=== PATIENT | male | born 1970 | race Caucasian/White ===

== ENCOUNTER 2018-08-02 21:56 | Emergency (ER) | payer SELFPAY ==
[~2018-08-02] VITALS: Ht 172.7 cm; Wt 93.5 kg
[2018-08-02 22:00] VITALS: Ht 172.7 cm; Wt 93.5 kg
[2018-08-03] MEDS ORDERED: CIPROFLOXACIN 250 MG TAB PO ONE (01:30)
[2018-08-03] MEDS ORDERED: DIPHTH/TET/ACEL PERTUSS (ADULT) 0.5 ML VIAL IM* ONE (01:30)
[2018-08-03] MEDS ORDERED: CIPR750T3 PO (03:12)
[2018-08-03 03:44] VITALS: BP 132/67; PULSE 78; RESP 18
--- NOTE | 2018-08-03 03:53 | ERD ---
ER Documentation Chief Complaint Chief Complaint nail puncture on L foot hx of diabetes; no bleeding noted HPI This is a 47-year-old male history of diabetes presents to the ED status post nail puncture wound to his left plantar foot sustained just prior to arrival. Patient states he was wearing sneakers when he accidentally stepped on a a 3 inch goyo nail. Patient immediately changed his shoes and washed his feet with alcohol and peroxide. He then came here for further evaluation. Patient denies any numbness, tingling, focal weakness. Denies any fevers or chills. No other complaints. ROS All systems reviewed and are negative except as per history of present illness. Medications Home Meds Active Scripts Ciprofloxacin Hcl* (Ciprofloxacin Hcl*) 750 Mg Tablet, 750 MG PO BID, #14 TAB Prov:JENARO ENNIS PA-C 08/03/18 PMhx/Soc Medical and Surgical Hx: pt denies Surgical Hx Hx Alcohol Use: No Hx Substance Use: No Hx Tobacco Use: No Physical Exam Vitals Vital Signs Date Temp Pulse Resp B/P (MAP) Pulse Ox O2 O2 Flow FiO2 Time Delivery Rate 08/03/18 98.3 78 18 132/67 100 03:44 (88) 08/02/18 97.5 98 20 142/88 100 22:00 (106) Physical Exam Const: No acute distress Head: Atraumatic Eyes: Normal Conjunctiva ENT: Normal External Ears, Nose and Mouth. Neck: Full range of motion. No meningismus. Resp: Clear to auscultation bilaterally Cardio: Regular rate and rhythm, no murmurs Skin: No petechiae or rashes Back: No midline or flank tenderness Ext: + Small puncture wound to his left plantar foot. No active bleeding. No drainage. No surrounding erythema. DP, PT pulses 2+. Refill less than 2 seconds. Negative Homans sign. Sensation and motor grossly intact. Neur: Awake and alert Psych: Normal Mood and Affect Results 24 hrs Current Medications Medications Dose Sig/Allyson Start Time Status Last (Trade) Ordered Route PRN Stop Time Admin Dose Reason Admin Diphtheria/ 0.5 ml ONCE ONCE 08/03/18 DC 08/03/18 Tetanus/Acell IM* 01:30 01:54 Pertussis 08/03/18 01:31 (Adacel) 750 mg ONCE ONCE 08/03/18 DC 08/03/18 Ciprofloxacin PO 01:30 01:54 (Cipro) 08/03/18 01:31 Procedures/MDM LABS & DIAGNOSTIC IMAGING: PROCEDURE: X-ray left foot. CLINICAL INDICATION: The patient stepped on a nail. TECHNIQUE: AP, lateral and oblique views of the left foot. COMPARISON: None. FINDINGS: No evident retained radiopaque foreign material or subcutaneous emphysema is seen in the left foot. No evident retained radiopaque foreign material seen in the left foot. There is no evident acute fracture or dislocation. Prominent plantar and posterior dorsal calcaneal enthesophytes, greater at the posterior dorsal calcaneus. Vascular calcifications are seen in the left foot. The soft tissues are otherwise unremarkable. IMPRESSION: No evident retained radiopaque foreign material in the left foot. PROCEDURES: Wound was extensively irrigated by emerging technologies director at bedside. ED COURSE: The patient was given tetanus and first dose of Cipro here. The medication was well tolerated and the patient had market improvement in symptoms. The patient remained stable throughout ED course. MEDICAL DECISION MAKING: This is a 47-year-old diabetic male presents to the ED status post puncture wound by a nail just prior to arrival. X-ray as above shows no evidence of sandra ined foreign body. His wound was extensively irrigated. Tetanus is updated and first course of Cipro was given. Given history of diabetes, will treat with outpatient oral antibiotics. Discussed risk of deeper infection into the tissue, bone and skin. At this time, patient has no evidence of tenosynovitis, osteomyelitis, necrotizing fasciitis, abscess or cellulitis. Recommended follow-up with his primary care provider in 2 days. Strict return precautions discussed. PRESCRIPTIONS: Ciprofloxacin SPECIALIST FOLLOW UP RECOMMENDED: None Patient has been advised to follow up with primary care in 1-2 days. Blood Pressure Assessment: Patient's blood pressure was elevated (>120/80) but appears stable without evidence of hypertension emergency or urgency. The patient was counseled about the risks of hypertension and urged to pursue outpatient monitoring and therapy within a week with their primary care physician. Departure Diagnosis: Primary Impression: Puncture wound Additional Impression: Diabetes Diabetes mellitus type: type 2 Condition: Stable Patient Instructions: Puncture Wound, Foot Referrals: COMMUNITY CLINICS YOU HAVE RECEIVED A MEDICAL SCREENING EXAM AND THE RESULTS INDICATE THAT YOU DO NOT HAVE A CONDITION THAT REQUIRES URGENT TREATMENT IN THE EMERGENCY DEPARTMENT. FURTHER EVALUATION AND TREATMENT OF YOUR CONDITION CAN WAIT UNTIL YOU ARE SEEN IN YOUR DOCTORS OFFICE WITHIN THE NEXT 1-2 DAYS. IT IS YOUR RESPONSIBILITY TO MAKE AN APPOINTMENT FOR FOLOW-UP CARE. IF YOU HAVE A PRIMARY DOCTOR --you should call your primary doctor and schedule an appointment IF YOU DO NOT HAVE A PRIMARY DOCTOR YOU CAN CALL OUR PHYSICIAN REFERRAL HOTLINE AT IF YOU CAN NOT AFFORD TO SEE A PHYSICIAN YOU CAN CHOSE FROM THE FOLLOWING [facility] [address] [facility] [address] [facility] [address] [facility] [address] [facility] [address] [facility]. [facility] [address] [facility]. [facility] YOU HAVE RECEIVED A MEDICAL SCREENING EXAM AND THE RESULTS INDICATE THAT YOU DO NOT HAVE A CONDITION THAT REQUIRES URGENT TREATMENT IN THE EMERGENCY DEPARTMENT. FURTHER EVALUATION AND TREATMENT OF YOUR CONDITION CAN WAIT UNTIL YOU ARE SEEN IN YOUR DOCTORS OFFICE WITHIN THE NEXT 1-2 DAYS. IT IS YOUR RESPONSIBILITY TO MAKE AN APPOINTMENT FOR FOLOW-UP CARE. IF YOU HAVE A PRIMARY DOCTOR --you should call your primary doctor and schedule and appointment IF YOU DO NOT HAVE A PRIMARY DOCTOR YOU CAN CALL OUR PHYSICIAN REFERRAL HOTLINE AT . IF YOU CAN NOT AFFORD TO SEE A PHYSICIAN YOU CAN CHOSE FROM THE FOLLOWING [facility] INSTITUTIONS: [facility] [id number] [place] [address] [facility] [address] [place] [address] [facility] + [facility] [address] [place] [address] [facility] URGENT CARE/SPECIALTIES Additional Instructions: You must follow-up with your regular doctor in 2 days. Take the entire course of antibiotics for 7 days. There is a chance that this puncture wound can progress to deeper infection into the skin and and into the bone. Monitor for any fevers, worsening pain, redness, discharge. Return here for any new or worsening symptoms. JENARO ENNIS PA-C Aug 03, 2018 03:53
== END 2018-08-03 03:46 | disposition home or self-care (01) ==
LOC: FTE 21:56
DX: S91.332A Puncture wound without foreign body, left foot, initial encounter (principal); E11.9 Type 2 diabetes mellitus without complications; W45.0XXA Nail entering through skin, initial encounter; Y92.9 Unspecified place or not applicable; Z23 Encounter for immunization
CPT/HCPCS: 90471; 90715

== ENCOUNTER 2019-01-05 17:23 | Emergency (ER) | payer SELFPAY ==
[~2019-01-05] VITALS: Wt 89.0 kg
[~2019-01-05 17:23] MED LIST: ACET325T33 PO; CIPR750T3 PO; IBUP-1561 PO
[2019-01-05 17:28] VITALS: BP 113/72; PULSE 73; RESP 18
== END 2019-01-05 18:49 | disposition home or self-care (01) ==
LOC: E/R 17:23
DX: S40.011A Contusion of right shoulder, initial encounter (principal); S00.512A Abrasion of oral cavity, initial encounter; Y08.89XA Assault by other specified means, initial encounter
CPT/HCPCS: 99282